=== PATIENT | female | born 1975 | race Caucasian/White ===

== ENCOUNTER → 2017-10-12 09:25 | Outpatient (CLI) | payer OTHER, SELFPAY ==
--- NOTE | 2017-10-12 09:25 | DT_ITS ---
This patient was seen during an EMR downtime October 06, 2017 - October 13, 2017. This patient may have a combination of paper and electronic documentation or all paper documentation. All documentation is viewable within the e-chart portion of [facility] for each patient visit.
--- NOTE | 2017-10-12 09:25 | RAD_ITS ---
STUDY: X-RAY - RIGHT ELBOW REASON FOR EXAM: Female, 42 years old. Pain, injury TECHNIQUE: 3 view(s) of the elbow. COMPARISON: None. FINDINGS: Normal visualized humerus, radius and ulna. Normal radiocapitellar and ulnotrochlear articulations. There is no joint fluid. Small radiodensities project at the posterior soft tissues seen on the lateral view only IMPRESSION:. No fracture Artifact versus radiopaque foreign body at the posterior soft tissues Electronically Signed: Will Smith MD at 9:40 EDT Tel , Service support , RAD/Elbow min 3 Views
== END ==
PROVIDERS: Family Provider Family Medicine; PCP Family Medicine; Visit Provider Physician Assistant Medical
DX: M25.521 Pain in right elbow (principal); M25.421 Effusion, right elbow
CPT/HCPCS: 73080